=== PATIENT | female | born 1975 | race African-American/Black ===

== ENCOUNTER 2017-12-08 15:28 | Emergency (ER) | payer OTHER ==
[~2017-12-08] VITALS: Ht 172.7 cm; Wt 99.0 kg
[2017-12-08] MEDS ORDERED: IBUPROFEN 600MG TABLET PO ONE (16:45)
[2017-12-08 16:59] VITALS: BP 149/87
== END 2017-12-08 17:02 | disposition home or self-care (01) ==
LOC: ER 15:55
DX: S39.012A Strain of muscle, fascia and tendon of lower back, initial encounter (principal); S00.93XA Contusion of unspecified part of head, initial encounter; I10 Essential (primary) hypertension; V89.2XXA Person injured in unspecified motor-vehicle accident, traffic, initial encounter; Y93.89 Activity, other specified; Y92.481 Parking lot as the place of occurrence of the external cause; Y99.8 Other external cause status
CPT/HCPCS: 99283